=== PATIENT | male | born 1955 | race Caucasian/White ===

== ENCOUNTER 2018-12-01 07:37 | Day surgery (SDC) | payer OTHER ==
[~2018-12-01] VITALS: Ht 165.1 cm; Wt 87.4 kg
[2018-12-01] MEDS ORDERED: MIDAZOLAM 1 MG/ML 2 ML INJ ONE ×3 (07:55→10:53)
[2018-12-01] MEDS ORDERED: FENTAnyl 50 MCG/ML VIAL ONE ×2 (08:11→10:53)
[2018-12-01] MEDS ORDERED: BASAGLAR (09:33)
[2018-12-01] MEDS ORDERED: aspirin (09:33)
[2018-12-01] MEDS ORDERED: metformin (09:33)
[2018-12-01 09:51] VITALS: BMI 30.0
[2018-12-01 09:52] VITALS: BP 140/67; PULSE 65; RESP 18
[2018-12-01] MEDS ORDERED: ibuprofen ×2 (10:55→11:01)
[2018-12-01 10:58] VITALS: Ht 165.1 cm; Wt 87.4 kg
[2018-12-01 11:36] VITALS: BP 134/77; RESP 20
== END 2018-12-01 11:42 | disposition home or self-care (01) ==
LOC: GIL 07:37
PROVIDERS: ATTEND Internal Medicine Gastroenterology
DX: Z12.11 Encounter for screening for malignant neoplasm of colon (principal); E11.9 Type 2 diabetes mellitus without complications
CPT/HCPCS: 45378; 82962; 88305; J2250; J3010